=== PATIENT | female | born 1985 | race Caucasian/White ===

== ENCOUNTER 2017-11-02 04:12 | Emergency (ER) | payer BC ==
--- NOTE | 2017-11-02 04:43 | ED PDOC ---
Arrival/HPI - General Chief Complaint: Abdominal Pain Time Seen by Provider: 11/02/17 04:13 Historian: Patient - History of Present Illness Narrative History of Present Illness (Text): 11/02/17 04:40 Jade Gleason is a 32 year old female, whose past medical history includes chronic lower back pain and herniated discs, who presents to the Emergency department complaining of palpitations. Patient states she has been experiencing palpitations, shortness of breath, and upper abdominal pain for the past 3 days.States she had taken Miralax feeling she may have been constipated but states she felt worse. Patient denies any fever, chills, chest pain, nausea, vomiting, diarrhea, urinary symptoms, back pain, neck pain, headache, dizziness, or any other complaints. Time/Duration: < week (3 days) Symptom Onset: Gradual Symptom Course: Unchanged Activities at Onset: Light Context: Home Past Medical History - Provider Review Nursing Documentation Reviewed: Yes - Cardiac Hx Cardiac Disorders: Yes Hx Heart Murmur: Yes - Musculoskeletal/Rheumatological Hx Musculoskeletal Disorders: Yes Hx Herniated Disk: Yes (lumbar) - Psychiatric Hx Substance Use: No - Surgical History Hx Tonsillectomy: Yes (1995) Family/Social History - Physician Review Nursing Documentation Reviewed: Yes Family/Social History: Unknown Family HX Smoking Status: Never Smoked Hx Alcohol Use: No Hx Substance Use: No Allergies/Home Meds Allergies/Adverse Reactions: Allergies No Known Allergies Allergy (Verified 11/02/17 04:17) Home Medications: Home Meds Medication Instructions Recorded Confirmed Ergocalciferol (Vitamin D2) 2,000 iu PO DAILY 11/02/17 11/02/17 [Vitamin D2] Multivitamin with Minerals [One 1 tab PO DAILY 11/02/17 11/02/17 Daily Complete] Naproxen [Naprosyn] 500 mg PO DAILY 11/02/17 11/02/17 Review of Systems - Physician Review All systems were reviewed & negative as marked: Yes - Review of Systems Constitutional: Normal. absent: Fevers Eyes: Normal ENT: Normal Respiratory: SOB. absent: Cough Cardiovascular: Palpitations. absent: Chest Pain Gastrointestinal: Abdominal Pain Genitourinary Female: Normal. absent: Dysuria, Frequency, Hematuria, Urine Output Changes Musculoskeletal: Normal. absent: Back Pain, Neck Pain Skin: Normal. absent: Rash Neurological: Normal. absent: Headache, Dizziness Endocrine: Normal Hemo/Lymphatic: Normal Psychiatric: Normal Physical Exam Vital Signs Reviewed: Yes Vital Signs Temp Pulse Resp BP Pulse Ox 11/02/17 04:19 99.3 F 72 18 132/86 98 Temperature: Afebrile Blood Pressure: Normal Pulse: Regular Respiratory Rate: Normal Appearance: Positive for: Well-Appearing, Non-Toxic, Comfortable Pain Distress: None Mental Status: Positive for: Alert and Oriented X 3 - Systems Exam Head: Present: Atraumatic, Normocephalic Pupils: Present: PERRL Extroacular Muscles: Present: EOMI Conjunctiva: Present: Normal Mouth: Present: Moist Mucous Membranes Neck: Present: Normal Range of Motion. No: Meningeal Signs, MIDLINE TENDERNESS , Paraspinal Tenderness Respiratory/Chest: Present: Clear to Auscultation, Good Air Exchange. No: Respiratory Distress, Accessory Muscle Use Cardiovascular: Present: Regular Rate and Rhythm, Normal S1, S2. No: Murmurs Abdomen: Present: Tenderness (upper abdominal), Normal Bowel Sounds. No: Distention, Peritoneal Signs Back: Present: Normal Inspection Upper Extremity: Present: Normal Inspection. No: Cyanosis, Edema Lower Extremity: Present: Normal Inspection. No: Edema Neurological: Present: GCS=15, CN II-XII Intact, Speech Normal Skin: Present: Warm, Dry, Normal Color. No: Rashes Psychiatric: Present: Alert, Oriented x 3, Normal Insight, Normal Concentration Medical Decision Making ED Course and Treatment: 11/02/17 04:40 Impression: 32 year old female complaining of palpitations, shortness of breath, and abdominal pain for 3 days. Plan: -- EKG -- Chest X-ray -- Labs, cardiac enzymes, lipase, D-dimer -- Reassess and disposition Progress Notes: 11/02/17 04:55 Reviewed EKG, NSR at [address]-segment elevations or depressions, no T-wave inversions, normal intervals. 11/02/17 05:39 Chest X-ray reviewed, shows no acute processes. - Lab Interpretations Lab Results: 11/02/17 05:00 11/02/17 05:00 Lab Results 11/02/17 05:00: Urine Color Straw, Urine Appearance Clear, Urine pH 7.5, Ur Specific [place] 1.015, Urine Protein Negative, Urine Glucose (UA) Negative, Urine Ketones Negative, Urine Blood Negative, Urine Nitrate Negative, Urine Bilirubin Negative, Urine Urobilinogen 0.2, Ur Leukocyte Esterase Negative, Urine HCG, Qual Negative 11/02/17 05:00: PT 13.0 H, INR 1.14 H, APTT 30.7 11/02/17 05:00: D-Dimer, Quantitative < 200 11/02/17 05:00: WBC 5.6, RBC 3.95, Hgb 12.2, Hct 35.5 L, MCV 89.9, MCH 30.9, MCHC 34.4, RDW 12.4, Plt Count 230, MPV 10.7 11/02/17 05:00: Sodium 142, Potassium 3.9, Chloride 108 H, Carbon Dioxide 24, Anion Gap 14, BUN 9, Creatinine 0.6 L, Est GFR ( Amer) > 60, Est GFR (Non -Af Amer) > 60, Random Glucose 89, Calcium 10.2, Total Bilirubin 0.5, AST 24, ALT 29, Alkaline Phosphatase 50, Lactate Dehydrogenase 320 L, Total Creatine Kinase 49, Troponin I < 0.01, Total Protein 6.9, Albumin 4.2, Globulin 2.7, Albumin/Globulin Ratio 1.6, Lipase 78 I have reviewed the lab results: Yes - RAD Interpretation Radiology Orders: 11/02/17 04:30 CHEST PORTABLE [RAD] Stat 11/02/17 06:03 ABD & PELVIS IV CONTRAST ONLY [CT] Stat Photo Finisher: ED Physician - EKG Interpretation Interpreted by ED Physician: Yes Type: 12 lead EKG - Transfer of Care Patient signed out to Dr:: Imm Pending Radiology Studies:: Pending CT Abd/pelvis/reassess/final disposition - Scribe Statement The provider has reviewed the documentation as recorded by the Martina Ray Provider Scribe Attestation: All medical record entries made by the Jorge Libgladys were at my direction and personally dictated by me. I have reviewed the chart and agree that the record accurately reflects my personal performance of the history, physical exam, medical decision making, and the department course for this patient. I have also personally directed, reviewed, and agree with the discharge instructions and disposition. Disposition/Present on Arrival - Present on Arrival Any Indicators Present on Arrival: No History of DVT/PE: No History of Uncontrolled Diabetes: No Urinary Catheter: No History of Decub. Ulcer: No History Surgical Site Infection Following: None - Disposition Have Diagnosis and Disposition been Completed?: No Diagnosis: Abdominal pain Disposition Time: 07:00 Condition: STABLE Forms: [employer] (Belarusian)
[2017-11-02 05:21] LABS: ALB/GLOB RATIO 1.6 (1.1-1.8); ALBUMIN 4.2 g/dL (3.0-4.8); ALT/SGPT 29 U/L (7-56); AST/SGOT 24 U/L (14-36); BLOOD UREA NITROGEN 9 mg/dL (7-21); CALCIUM 10.2 mg/dL (8.4-10.5); GFR AFRICAN-AMERICAN > 60; GFR NON-AFRICAN AMERICAN > 60; LIPASE 78 U/L (23-300)
[2017-11-02 05:22] LABS: HEMOGLOBIN 12.2 g/dL (12.0-16.0); MEAN CELL VOLUME 89.9 fl (80.0-105.0); MEAN CORPUSCULAR HEMOGLOBIN 30.9 pg (25.0-35.0); MEAN CORPUSCULAR HGB CONC 34.4 g/dl (31.0-37.0); MEAN PLATELET VOLUME 10.7 fl (7.0-11.0); RBC 3.95 10^6/uL (3.5-6.1); RED CELL DISTRIBUTION WIDTH 12.4 % (11.5-14.5); WHITE BLOOD COUNT 5.6 10^3/ul (4.5-11.0)
[2017-11-02 05:32] LABS: TROPONIN I < 0.01 ng/mL
[2017-11-02 05:38] LABS: INR 1.14 (0.93-1.08); PARTIAL THROMBOPLASTIN TIME 30.7 Seconds (25.1-36.5)
[2017-11-02 06:16] LABS: PH,URINE 7.5 (4.7-8.0); URINE BILIRUBIN NEGATIVE (NEGATIVE); URINE BLOOD NEGATIVE (NEGATIVE); URINE GLUCOSE (UA) NEGATIVE (NEGATIVE); URINE LEUKOCYTE ESTERASE NEGATIVE Leu/uL (NEGATIVE); URINE NITRATE NEGATIVE (NEGATIVE); URINE PROTEIN NEGATIVE mg/dL (<30 mg/dL); URINE UROBILINOGEN 0.2 E.U./dL (<1 E.U./dL)
[2017-11-02 06:20] LABS: URINE APPEARANCE CLEAR (CLEAR); URINE COLOR STRAW (YELLOW)
[2017-11-02 06:21] LABS: HCG,QUALITATIVE URINE NEGATIVE (NEGATIVE)
[2017-11-02] MEDS ORDERED: Iohexol 350 MG/100 ML VIAL ONE (06:23)
[2017-11-02 07:01] VITALS: PULSE 73
--- NOTE | 2017-11-02 07:16 | CT ---
EXAM: CT Abdomen and Pelvis With Intravenous Contrast CLINICAL HISTORY: 32 years old, female; Pain; Abdominal pain; Generalized TECHNIQUE: Axial computed tomography images of the abdomen and pelvis with intravenous contrast. All CT scans at this facility use one or more dose reduction techniques, viz.: automated exposure control; ma/kV adjustment per patient size (including targeted exams where dose is matched to indication; i.e. head); or iterative reconstruction technique. 512 images are submitted. Coronal and sagittal reformatted images were created and reviewed. CONTRAST: 100 mL of omnipaque 350 administered intravenously. COMPARISON: No relevant prior studies available. FINDINGS: Lower thorax: No acute findings. ABDOMEN: Liver: Fatty liver. Gallbladder and bile ducts: Unremarkable. No ductal dilation. Pancreas: Unremarkable. No mass. No ductal dilation. Spleen: Unremarkable. No splenomegaly. Adrenals: Unremarkable. No mass. Kidneys and ureters: Unremarkable. No solid mass. No hydronephrosis. Stomach and bowel: There are nonspecific fluid filled small bowel loops. These findings can represent ileus versus enteritis versus slow transit versus peristalsis.There is stool like appearance to the terminal ileum. This may represent slow transit. No mucosal thickening. Possible diverticulosis. Moderate amount of stool in the colon. Appendix: Normal appendix. PELVIS: Bladder: Bladder distention measuring 8.0 cm. Correlation with patient's voiding status is recommended. Reproductive: Left ovarian hypodense cyst measuring 3.0 x 1.9 cm with left paraovarian fluid.If clinically warranted, a pelvic ultrasound may be helpful for further assessment. Retroverted uterus. Endometrial stripe thickening and/or fluid. High riding ovaries. ABDOMEN and PELVIS: Intraperitoneal space: Unremarkable. No free air. No significant fluid collection. Bones/joints: L3-L4 disc calcification. No acute fracture. No dislocation. Soft tissues: Unremarkable. Vasculature: Prominent left pelvic vessels. Correlation with clinical data is recommended if pelvic congestion syndrome is clinically suspected.The aorta is normal in caliber and there are no nisha-aortic collections. No abdominal aortic aneurysm. Lymph nodes: Unremarkable. No enlarged lymph nodes. IMPRESSION: 1. Left ovarian hypodense cyst measuring 3.0 x 1.9 cm with left paraovarian fluid.If clinically warranted, a pelvic ultrasound may be helpful for further assessment.
[2017-11-02 07:59] VITALS: BP 123/69; RESP 19; TEMP 99; O2SAT 99
--- NOTE | 2017-11-02 08:17 | ED PDOC ---
Physical Exam - Physical Exam Narrative Physical Exam (Text): 32 y/o F signed out to me at change of shift pending CT abdomen/pelvis. Patient p/w dyspnea and palpitations causing difficulty sleeping for 3 days. Patient states she was constipated a few days ago and took Miralax. FINDINGS: Lower thorax: No acute findings. ABDOMEN: Liver: Fatty liver. Gallbladder and bile ducts: Unremarkable. No ductal dilation. Pancreas: Unremarkable. No mass. No ductal dilation. Spleen: Unremarkable. No splenomegaly. Adrenals: Unremarkable. No mass. Kidneys and ureters: Unremarkable. No solid mass. No hydronephrosis. Stomach and bowel: There are nonspecific fluid filled small bowel loops. These findings can represent ileus versus enteritis versus slow transit versus peristalsis.There is stool like appearance to the terminal ileum. This may represent slow transit. No mucosal thickening. Possible diverticulosis. Moderate amount of stool in the colon. Appendix: Normal appendix. PELVIS: Bladder: Bladder distention measuring 8.0 cm. Correlation with patient's voiding status is recommended. Reproductive: Left ovarian hypodense cyst measuring 3.0 x 1.9 cm with left paraovarian fluid.If clinically warranted, a pelvic ultrasound may be helpful for further assessment. Retroverted uterus. Endometrial stripe thickening and/or fluid. High riding ovaries. ABDOMEN and PELVIS: Intraperitoneal space: Unremarkable. No free air. No significant fluid collection. Bones/joints: L3-L4 disc calcification. No acute fracture. No dislocation. Soft tissues: Unremarkable. Vasculature: Prominent left pelvic vessels. Correlation with clinical data is recommended if pelvic congestion syndrome is clinically suspected.The aorta is normal in caliber and there are no nisha-aortic collections. No abdominal aortic aneurysm. Lymph nodes: Unremarkable. No enlarged lymph nodes. IMPRESSION: 1. Left ovarian hypodense cyst measuring 3.0 x 1.9 cm with left paraovarian fluid.If clinically warranted, a pelvic ultrasound may be helpful for further assessment. Labs unremarkable. No leukocytosis. Negative d dimer. Negative enzymes. Patient in no acute distress. Discharged home, instructed to f/u with PMD, return to ED for worsening pain, fever, dyspnea, or any other problem. Vital Signs Temp Pulse Resp BP Pulse Ox 11/02/17 07:17 99 F 73 19 123/69 99 11/02/17 06:12 99.2 F 73 18 130/72 100 11/02/17 04:19 99.3 F 72 18 132/86 98 Medical Decision Making - Lab Interpretations Lab Results: 11/02/17 05:00 11/02/17 05:00 Lab Results 11/02/17 05:00: Urine Color Straw, Urine Appearance Clear, Urine pH 7.5, Ur Specific [place] 1.015, Urine Protein Negative, Urine Glucose (UA) Negative, Urine Ketones Negative, Urine Blood Negative, Urine Nitrate Negative, Urine Bilirubin Negative, Urine Urobilinogen 0.2, Ur Leukocyte Esterase Negative, Urine HCG, Qual Negative 11/02/17 05:00: PT 13.0 H, INR 1.14 H, APTT 30.7 11/02/17 05:00: D-Dimer, Quantitative < 200 11/02/17 05:00: WBC 5.6, RBC 3.95, Hgb 12.2, Hct 35.5 L, MCV 89.9, MCH 30.9, MCHC 34.4, RDW 12.4, Plt Count 230, MPV 10.7 11/02/17 05:00: Sodium 142, Potassium 3.9, Chloride 108 H, Carbon Dioxide 24, Anion Gap 14, BUN 9, Creatinine 0.6 L, Est GFR ( Amer) > 60, Est GFR (Non -Af Amer) > 60, Random Glucose 89, Calcium 10.2, Total Bilirubin 0.5, AST 24, ALT 29, Alkaline Phosphatase 50, Lactate Dehydrogenase 320 L, Total Creatine Kinase 49, Troponin I < 0.01, Total Protein 6.9, Albumin 4.2, Globulin 2.7, Albumin/Globulin Ratio 1.6, Lipase 78 - RAD Interpretation Radiology Orders: 11/02/17 04:30 CHEST PORTABLE [RAD] Stat 11/02/17 06:03 ABD & PELVIS IV CONTRAST ONLY [CT] Stat Disposition/Present on Arrival - Present on Arrival Any Indicators Present on Arrival: No History of DVT/PE: No History of Uncontrolled Diabetes: No Urinary Catheter: No History of Decub. Ulcer: No History Surgical Site Infection Following: None - Disposition Have Diagnosis and Disposition been Completed?: Yes Diagnosis: Ovarian cyst Disposition: HOME/ ROUTINE Disposition Time: 08:18 Patient Plan: Discharge Patient Problems: Current Active Problems Problem Status Onset Abdominal pain Acute Condition: STABLE Discharge Instructions (ExitCare): Ovarian Cyst (ED) Forms: [employer] (Armenian)
--- NOTE | 2017-11-02 10:32 | RAD ---
HISTORY: sob COMPARISON: No prior. FINDINGS: LUNGS: No active pulmonary disease. PLEURA: No significant pleural effusion identified, no pneumothorax apparent. CARDIOVASCULAR: Normal. OSSEOUS STRUCTURES: No significant abnormalities. VISUALIZED UPPER ABDOMEN: Normal. OTHER FINDINGS: None. IMPRESSION: No active disease.
--- NOTE | 2017-11-02 15:54 | CARD ---
APPROVED REPORT EKG Measurement Heart [id number] <Conclusion> Normal sinus rhythm Normal ECG
== END 2017-11-02 08:48 | disposition home or self-care (01) ==
LOC: ED 04:12
DX: N83.202 Unspecified ovarian cyst, left side (principal)
CPT/HCPCS: 71045; 74177; 80053; 81003; 82550; 83615; 83690; 84484; 84703; 85027; 85378; 85610; 85730; 93005; 99284; Q9967